=== PATIENT | female | born 1955 | race Caucasian/White ===

== ENCOUNTER 2016-07-30 14:25 | Emergency (ER) | payer OTHER ==
[2016-07-30 14:53] LABS: MANUAL DIFF NEEDED? NO
[2016-07-30 14:55] LABS: BASO% 0.4 % (0.0-0.8); EOS# 0.11 X1000 (0.0-0.7); HEMATOCRIT 39.7 % (37.0-47.0); HEMOGLOBIN 13.4 g/dL (12.0-16.0); IMM GRAN# 0.03 X1000 (0.0-0.04); IMM GRAN% 0.3 % (0.0-0.5); LYMPH# 2.81 X1000 (1.2-3.4); LYMPH% 25.8 % (20.5-51.1); MCH 30.9 PG (27-31); MCHC 33.8 g/dL (33-37); MCV 91.7 FL (81-99); MONO# 0.86 X1000 (0.11-0.59); MONO% 7.9 % (1.7-9.3); MPV 9.8 FL (7.4-10.4); NEUT% 64.6 % (42.2-75.2); PLT 292 X1000 (130-400); RBC 4.33 XMIL (4.2-5.4)
[2016-07-30 15:11] LABS: AGAP 11; ALBUMIN 4.1 g/dL (3.5-5.0); ALKALINE PHOSPHATASE 104 U/L (32-104); BUN 12 mg/dL (8-22); CALCIUM 9.1 mg/dL (8.8-10.2); CHLORIDE 98 mmol/L (98-107); COSMO 271; GOT 22 U/L (10-30); GPT 21 U/L (10-36); POTASSIUM 4.3 mmol/L (3.5-5.1); SODIUM 136 mmol/L (136-145); TCO2 27 mmol/L (25-35); TOTAL BILIRUBIN 0.18 mg/dL (0.20-1.00); TOTAL PROTEIN 7.4 g/dL (6.3-8.3)
[2016-07-30 15:25] LABS: URINE CULTURE NEEDED? NO; URINE MICRO REVIEW NEEDED? NO; URINE SOURCE CLEAN CATCH
[2016-07-30 15:30] LABS: BILIRUBIN URINE NEGATIVE (NEGATIVE); BLOOD URINE NEGATIVE (NEGATIVE); COLOR STRAW; GLUCOSE URINE NEGATIVE (NEGATIVE); LEUKOCYTES URINE NEGATIVE (NEGATIVE); NITRITE URINE NEGATIVE (NEGATIVE); PH URINE 6.5; PROTEIN URINE NEGATIVE (NEGATIVE); SP GRAVITY URINE 1.001; TURBIDITY URINE CLEAR (CLEAR); UROBILINOGEN URINE NORMAL (NORMAL)
[2016-07-30 15:32] LABS: ACETAMINOPHEN < 1.2 ug/mL (10-30)
[2016-07-30 15:32] LABS: UR EPITHELIAL CELLS <10 /HPF (<10); URINE BACTERIA NEGATIVE /HPF; URINE RBC <10 /HPF (<10); URINE WBC <10 /HPF (<10)
[2016-07-30 15:38] LABS: FREE T4 0.43 ng/dL (0.93-1.70)
[2016-07-30 15:38] LABS: UR AMPHETAMINES QUAL NONE DETECTED (NONE DETECT); UR BARBITUATES QUAL NONE DETECTED (NONE DETECT); UR BENZODIAZEPIN QUAL NONE DETECTED (NONE DETECT); UR CANNABINOIDS QUAL NONE DETECTED (NONE DETECT); UR COCAINE QUAL NONE DETECTED (NONE DETECT); UR METHADONE QUAL NONE DETECTED (NONE DETECT); UR OPIATES QUAL NONE DETECTED (NONE DETECT); UR OXYCODONE QUAL NONE DETECTED (NONE DETECT); UR PCP QUAL NONE DETECTED (NONE DETECT)
--- NOTE | 2016-07-30 16:03 | PROVIDER DOCUMENTATION ---
HPI-Psychological Disorder <Chucho Rebolledo - Last Filed: 07/30/16 17:24> - General Source: patient - History of Present Illness-Psych Onset/Duration: reports: this morning Timing: reports: still present Severity: reports: moderate Psychiatric Complaints: reports: suicidal ideation Previous psych related hospitalizations?: No Patient arrived by:: private car Similar Symptoms Previously?: No Recently seen or treated by another doctor?: No <Edda Torres - Last Filed: 07/30/16 17:44> <Maryana Maldonado - Last Filed: 07/30/16 21:32> - General Chief Complaint: Psych Stated Complaint: NEED EVAL Time Seen by Provider: 07/30/16 14:50 Allergies/Adverse Reactions: Patient Allergies Allergy/AdvReac Type Severity Reaction Status Date / Time No Known Allergies Allergy Verified 05/21/16 12:30 Home Medications: Home Medication List Medication Instructions Recorded Confirmed Last Taken Type Amitriptyline HCl 100 mg PO HS 07/30/16 07/30/16 07/29/16 20:00 History 100 MG Buspirone [Buspar] 10 mg PO BID 07/30/16 07/30/16 07/29/16 20:00 History 10 MG Citalopram [Celexa] 20 mg PO DAILY 07/30/16 07/30/16 07/30/16 07:00 History 20 MG Fluticasone 50 Mcg Nasal Page 1 spray INH BID 07/30/16 07/30/16 07/29/16 20:00 History [Flonase] 1 SPRAY Olanzapine [Olanzapine Odt] 5 mg PO HS 07/30/16 07/30/16 07/29/16 20:00 History 5 MG Quetiapine Fumarate 200 mg PO HS 07/30/16 07/30/16 07/29/16 20:00 History 200 MG SIMVAstatin [Zocor] 40 mg PO QHS 07/30/16 07/30/16 07/29/16 20:00 History 40 MG - History of Present Illness-Psych Nature of Presenting Problem: Reports that she has been in correction since 2013 till 2016 and is having to take drug test reports last friday she used crack and last friday or friday was drinking alcohol denies any other illicit drug useage. Reports her drug test is coming up and she wants a referral to [facility] because she reports that if she fails a drug test she will go back to correction and she will kill herself. Denies n,v,f,d, dsysuria. (Edda Torres) Review of Systems - Adult - REVIEW OF SYSTEMS - ADULT Constitutional: denies: chills, fever, fatique Eyes: reports: no symptoms reported Ears, Nose, Mouth & Throat: denies: ear pain, sinus problem, throat pain Cardiovascular: denies: chest pain, irregular heart rate, orthopnea, syncope Respiratory: denies: cough, shortness of breath, wheezing Gastrointestinal: denies: abdominal pain, diarrhea, nausea, vomiting Genitourinary: reports: no symptoms reported Musculoskeletal: reports: no symptoms reported Integumentary: reports: no symptoms reported Neurological: reports: no symptoms reported Psychiatric: reports: see HPI, alcohol/drug dependence, suicidal thoughts. denies: insomnia, panic attacks Endocrine: reports: no symptoms reported Hematologic/Lymphatic: reports: no symptoms reported Allergic/Immunologic: reports: no symptoms reported All Other Systems: Reviewed and Negative <Edda Torres - Last Filed: 07/30/16 17:44> Past History - Adult - PAST MEDICAL HISTORY-ADULT Review of Records: reports: Nursing Assessment Review, Medications Reviewed Major Childhood Illnesses: reports: denies history Cardiovascular: reports: HTN Respiratory: reports: COPD - PRIOR SURGERIES/PROCEDURES Surgical/Procedure History: reports: orthopedic (extremity) (ankle) - IMMUNIZATION STATUS Childhood Immunizations: See Nurse Assessment Flu Vaccine: See Nurse Assessment - SOCIAL HISTORY Smoking: cigarettes, less than 1 pack/day Provider spent 3-5 mins advising pt. on dangers of tobacco.: Discussed manners to quit use, and f/u contacts for add'l counseling. Substance Use: alcohol, cocaine <Edda Torres - Last Filed: 07/30/16 17:44> Physical Exam-Psych Focus - Physical Exam-Psych Initial Vital Signs Reviewed: Yes Appearance: appropriate appearance, appropriate insight, neat, no apparent distress Neurological: alert, normal mood/affect, calm, [employer] II-XII nml as tested, oriented x 3 Behavior/Eye Contact/Speech: cooperative, good eye contact, normal speech Thoughts/Hallucinations: normal thought pattern, no apparent hallucination HENMT: moist mucous membranes, normal ENT inspection, TMs normal, pharynx normal Neck: non-tender, full range of motion, supple, normal inspection Respiratory: chest non-tender, lungs clear, normal breath sounds, no pleuratic chest pain, no respiratory distress, no accessory muscle use Cardiovascular: regular rate, rhythm Abdominal Exam: normal bowel sounds, non tender, soft, no organomegaly, no pulsatile mass Back Exam: normal inspection, no CVA tenderness, no vertebral tenderness Extremity: normal range of motion, non-tender Integumentary: normal color, normal turgor, warm/dry <Edda Torres - Last Filed: 07/30/16 17:44> Progress <Chucho Reoblledo - Last Filed: 07/30/16 17:24> <Edda Torres - Last Filed: 07/30/16 17:44> - EKG 1 Time of EKG reading by physician:: 19:55 EKG Read and Signed by:: London Haywood EKG Interpretation (*Must complete 3 of following elements*): Normal Rate: 60 Rhythm: NSR Comments: Normal ECG - CT/MRI 1 CT Study: Head Impression: Normal CT Results: NAP <Maryana Maldonado - Last Filed: 07/30/16 21:32> - PLAN OF CARE/RESULTS Progress/Plan/Lab Results: Orders Category Date Time Status ACETAMINOPHEN [TDM] Stat Lab 07/30/16 14:44 Completed ALCOHOL BLOOD Stat Lab 07/30/16 14:44 Completed CBC WITH ELECTRONIC DIFF [HEME] Stat Lab 07/30/16 14:44 Completed COMPREHENSIVE METABOLIC PANEL [CHEM] Stat Lab 07/30/16 14:44 Completed FREE T4 Stat Lab 07/30/16 14:44 Completed SALICYLATES [TDM] Stat Lab 07/30/16 14:44 Completed TSH Stat Lab 07/30/16 14:44 Completed URINALYSIS W/POSS RFLX CULT [URINALYSIS] Stat Lab 07/30/16 15:19 Completed URINE DRUG SCREEN Stat Lab 07/30/16 15:19 Completed VITAMIN B12 Stat Lab 07/30/16 14:44 Completed Vital Signs - 24 hr 07/30/16 14:29 Temperature 97.9 F Pulse Rate 68 Respiratory 18 Rate Blood Pressure 186/94 O2 Sat by Pulse 99 Oximetry Laboratory Tests 07/30/16 07/30/16 07/30/16 14:44 14:44 14:44 WBC 10.90 H RBC 4.33 Hgb 13.4 Hct 39.7 MCV 91.7 MCH 30.9 MCHC 33.8 RDW Std Deviation 14.4 Plt Count 292 MPV 9.8 Immature Gran % (Auto) 0.3 Neut % (Auto) 64.6 Lymph % (Auto) 25.8 [place] % (Auto) 7.9 Eos % (Auto) 1.0 Baso % (Auto) 0.4 Immature Gran # (Auto) 0.03 Neut # (Auto) 7.05 H Lymph # (Auto) 2.81 [place] # (Auto) 0.86 H Eos # (Auto) 0.11 Baso # (Auto) 0.04 Sodium 136 Potassium 4.3 Chloride 98 Carbon Dioxide 27 Anion Gap 11 BUN 12 Creatinine 0.8 Estimated GFR/1.73 m2 > 60 BUN/Creatinine Ratio 15 Glucose 89 Calculated Osmolality 271 Calcium 9.1 Total Bilirubin 0.18 L AST 22 ALT 21 Alkaline Phosphatase 104 Total Protein 7.4 Albumin 4.1 Globulin 3.3 Albumin/Globulin Ratio 1.2 Vitamin B12 TSH Free T4 Urine Source Urine Color Urine Turbidity Urine pH Ur Specific [place] Urine Protein Ur Glucose (Stick) Ur Ketones (Stick) Urine Blood Urine Nitrite Urine Bilirubin Urobilinogen Dipstick Urine Leukocytes Urine WBC (Auto) Urine RBC (Auto) U Epithel Cells (Auto) Urine Bacteria (Auto) Salicylates Urine Opiates Screen Ur Oxycodone Screen Ur Methadone, Qual Acetaminophen Ur Barbiturates Screen Ur Phencyclidine Scrn Ur Amphetamines Screen U Benzodiazepines Scrn Urine Cocaine Screen U Cannabinoids Screen Plasma/Serum Ethyl Alc 07/30/16 07/30/16 07/30/16 14:44 14:44 15:19 WBC RBC Hgb Hct MCV MCH MCHC RDW Std Deviation Plt Count MPV Immature Gran % (Auto) Neut % (Auto) Lymph % (Auto) [place] % (Auto) Eos % (Auto) Baso % (Auto) Immature Gran # (Auto) Neut # (Auto) Lymph # (Auto) [place] # (Auto) Eos # (Auto) Baso # (Auto) Sodium Potassium Chloride Carbon Dioxide Anion Gap BUN Creatinine Estimated GFR/1.73 m2 BUN/Creatinine Ratio Glucose Calculated Osmolality Calcium Total Bilirubin AST ALT Alkaline Phosphatase Total Protein Albumin Globulin Albumin/Globulin Ratio Vitamin B12 744 TSH 32.42 H Free T4 0.43 L Urine Source CLEAN CATCH Urine Color STRAW Urine Turbidity CLEAR Urine pH 6.5 Ur Specific [place] 1.001 Urine Protein NEGATIVE Ur Glucose (Stick) NEGATIVE Ur Ketones (Stick) NEGATIVE Urine Blood NEGATIVE Urine Nitrite NEGATIVE Urine Bilirubin NEGATIVE Urobilinogen Dipstick NORMAL Urine Leukocytes NEGATIVE Urine WBC (Auto) <10 Urine RBC (Auto) <10 U Epithel Cells (Auto) <10 Urine Bacteria (Auto) NEGATIVE Salicylates < 3.00 L Urine Opiates Screen Ur Oxycodone Screen Ur Methadone, Qual Acetaminophen < 1.2 L Ur Barbiturates Screen Ur Phencyclidine Scrn Ur Amphetamines Screen U Benzodiazepines Scrn Urine Cocaine Screen U Cannabinoids Screen Plasma/Serum Ethyl Alc 07/30/16 15:19 WBC RBC Hgb Hct MCV MCH MCHC RDW Std Deviation Plt Count MPV Immature Gran % (Auto) Neut % (Auto) Lymph % (Auto) [place] % (Auto) Eos % (Auto) Baso % (Auto) Immature Gran # (Auto) Neut # (Auto) Lymph # (Auto) [place] # (Auto) Eos # (Auto) Baso # (Auto) Sodium Potassium Chloride Carbon Dioxide Anion Gap BUN Creatinine Estimated GFR/1.73 m2 BUN/Creatinine Ratio Glucose Calculated Osmolality Calcium Total Bilirubin AST ALT Alkaline Phosphatase Total Protein Albumin Globulin Albumin/Globulin Ratio Vitamin B12 TSH Free T4 Urine Source Urine Color Urine Turbidity Urine pH Ur Specific [place] Urine Protein Ur Glucose (Stick) Ur Ketones (Stick) Urine Blood Urine Nitrite Urine Bilirubin Urobilinogen Dipstick Urine Leukocytes Urine WBC (Auto) Urine RBC (Auto) U Epithel Cells (Auto) Urine Bacteria (Auto) Salicylates Urine Opiates Screen NONE DETECTED Ur Oxycodone Screen NONE DETECTED Ur Methadone, Qual NONE DETECTED Acetaminophen Ur Barbiturates Screen NONE DETECTED Ur Phencyclidine Scrn NONE DETECTED Ur Amphetamines Screen NONE DETECTED U Benzodiazepines Scrn NONE DETECTED Urine Cocaine Screen NONE DETECTED U Cannabinoids Screen NONE DETECTED Plasma/Serum Ethyl Alc [id number] [facility] contacted for evaluation (Edda Torres) Vital Signs - 24 hr 07/30/16 07/30/16 14:29 18:08 Temperature 97.9 F Pulse Rate 68 66 Respiratory 18 20 Rate Blood Pressure 186/94 150/76 O2 Sat by Pulse 99 97 Oximetry Orders Category Date Time Status Regular Diet Diet 07/30/16 16:26 Active CHEST-2 VIEWS [RAD] Stat Exams 07/30/16 21:12 Taken HEAD W/O CONTRAST [CT] Stat Exams 07/30/16 19:50 Taken ACETAMINOPHEN [TDM] Stat Lab 07/30/16 14:44 Completed ALCOHOL BLOOD Stat Lab 07/30/16 14:44 Completed CBC WITH ELECTRONIC DIFF [HEME] Stat Lab 07/30/16 14:44 Completed COMPREHENSIVE METABOLIC PANEL [CHEM] Stat Lab 07/30/16 14:44 Completed FREE T4 Stat Lab 07/30/16 14:44 Completed MAGNESIUM [CHEM] Stat Lab 07/30/16 14:44 Completed RPR [SERO] Stat Lab 07/30/16 14:44 Completed SALICYLATES [TDM] Stat Lab 07/30/16 14:44 Completed TSH Stat Lab 07/30/16 14:44 Completed URINALYSIS W/POSS RFLX CULT [URINALYSIS] Stat Lab 07/30/16 15:19 Completed URINE DRUG SCREEN Stat Lab 07/30/16 15:19 Completed VITAMIN B12 Stat Lab 07/30/16 14:44 Completed Levothyroxine [Synthroid] Med 07/30/16 17:15 Discontinued 100 microgm PO NOW ONE EKG [EKG] Stat Ther 07/30/16 19:50 Ordered Laboratory Tests 07/30/16 07/30/16 07/30/16 14:44 14:44 14:44 WBC 10.90 H RBC 4.33 Hgb 13.4 Hct 39.7 MCV 91.7 MCH 30.9 MCHC 33.8 RDW Std Deviation 14.4 Plt Count 292 MPV 9.8 Immature Gran % (Auto) 0.3 Neut % (Auto) 64.6 Lymph % (Auto) 25.8 [place] % (Auto) 7.9 Eos % (Auto) 1.0 Baso % (Auto) 0.4 Immature Gran # (Auto) 0.03 Neut # (Auto) 7.05 H Lymph # (Auto) 2.81 [place] # (Auto) 0.86 H Eos # (Auto) 0.11 Baso # (Auto) 0.04 Sodium 136 Potassium 4.3 Chloride 98 Carbon Dioxide 27 Anion Gap 11 BUN 12 Creatinine 0.8 Estimated GFR/1.73 m2 > 60 BUN/Creatinine Ratio 15 Glucose 89 Calculated Osmolality 271 Calcium 9.1 Magnesium Total Bilirubin 0.18 L AST 22 ALT 21 Alkaline Phosphatase 104 Total Protein 7.4 Albumin 4.1 Globulin 3.3 Albumin/Globulin Ratio 1.2 Vitamin B12 TSH Free T4 Urine Source Urine Color Urine Turbidity Urine pH Ur Specific [place] Urine Protein Ur Glucose (Stick) Ur Ketones (Stick) Urine Blood Urine Nitrite Urine Bilirubin Urobilinogen Dipstick Urine Leukocytes Urine WBC (Auto) Urine RBC (Auto) U Epithel Cells (Auto) Urine Bacteria (Auto) Salicylates Urine Opiates Screen Ur Oxycodone Screen Ur Methadone, Qual Acetaminophen Ur Barbiturates Screen Ur Phencyclidine Scrn Ur Amphetamines Screen U Benzodiazepines Scrn Urine Cocaine Screen U Cannabinoids Screen Plasma/Serum Ethyl Alc RPR 07/30/16 07/30/16 07/30/16 14:44 14:44 14:44 WBC RBC Hgb Hct MCV MCH MCHC RDW Std Deviation Plt Count MPV Immature Gran % (Auto) Neut % (Auto) Lymph % (Auto) [place] % (Auto) Eos % (Auto) Baso % (Auto) Immature Gran # (Auto) Neut # (Auto) Lymph # (Auto) [place] # (Auto) Eos # (Auto) Baso # (Auto) Sodium Potassium Chloride Carbon Dioxide Anion Gap BUN Creatinine Estimated GFR/1.73 m2 BUN/Creatinine Ratio Glucose Calculated Osmolality Calcium Magnesium 2.2 Total Bilirubin AST ALT Alkaline Phosphatase Total Protein Albumin Globulin Albumin/Globulin Ratio Vitamin B12 744 TSH 32.42 H Free T4 0.43 L Urine Source Urine Color Urine Turbidity Urine pH Ur Specific [place] Urine Protein Ur Glucose (Stick) Ur Ketones (Stick) Urine Blood Urine Nitrite Urine Bilirubin Urobilinogen Dipstick Urine Leukocytes Urine WBC (Auto) Urine RBC (Auto) U Epithel Cells (Auto) Urine Bacteria (Auto) Salicylates < 3.00 L Urine Opiates Screen Ur Oxycodone Screen Ur Methadone, Qual Acetaminophen < 1.2 L Ur Barbiturates Screen Ur Phencyclidine Scrn Ur Amphetamines Screen U Benzodiazepines Scrn Urine Cocaine Screen U Cannabinoids Screen Plasma/Serum Ethyl Alc RPR 07/30/16 07/30/16 07/30/16 14:44 15:19 15:19 WBC RBC Hgb Hct MCV MCH MCHC RDW Std Deviation Plt Count MPV Immature Gran % (Auto) Neut % (Auto) Lymph % (Auto) [place] % (Auto) Eos % (Auto) Baso % (Auto) Immature Gran # (Auto) Neut # (Auto) Lymph # (Auto) [place] # (Auto) Eos # (Auto) Baso # (Auto) Sodium Potassium Chloride Carbon Dioxide Anion Gap BUN Creatinine Estimated GFR/1.73 m2 BUN/Creatinine Ratio Glucose Calculated Osmolality Calcium Magnesium Total Bilirubin AST ALT Alkaline Phosphatase Total Protein Albumin Globulin Albumin/Globulin Ratio Vitamin B12 TSH Free T4 Urine Source CLEAN CATCH Urine Color STRAW Urine Turbidity CLEAR Urine pH 6.5 Ur Specific [place] 1.001 Urine Protein NEGATIVE Ur Glucose (Stick) NEGATIVE Ur Ketones (Stick) NEGATIVE Urine Blood NEGATIVE Urine Nitrite NEGATIVE Urine Bilirubin NEGATIVE Urobilinogen Dipstick NORMAL Urine Leukocytes NEGATIVE Urine WBC (Auto) <10 Urine RBC (Auto) <10 U Epithel Cells (Auto) <10 Urine Bacteria (Auto) NEGATIVE Salicylates Urine Opiates Screen NONE DETECTED Ur Oxycodone Screen NONE DETECTED Ur Methadone, Qual NONE DETECTED Acetaminophen Ur Barbiturates Screen NONE DETECTED Ur Phencyclidine Scrn NONE DETECTED Ur Amphetamines Screen NONE DETECTED U Benzodiazepines Scrn NONE DETECTED Urine Cocaine Screen NONE DETECTED U Cannabinoids Screen NONE DETECTED Plasma/Serum Ethyl Alc RPR NON-REACTIVE 21:27 Pt was accepted and is being transferred to [facility] (Maryana Maldonado) Departure <Chucho Rebolledo - Last Filed: 07/30/16 17:24> - Departure Time of Disposition Order: 17:06 Certified Medical Emergency: Emergent <Edda Torres - Last Filed: 07/30/16 17:44> - Departure Time of Disposition Order: 21:28 Certified Medical Emergency: Emergent <Maryana Maldonado - Last Filed: 07/30/16 21:32> - Departure DIAGNOSIS: Suicidal thoughts Hypothyroid Qualifiers: Hypothyroidism type: acquired Qualified Code(s): E03.9 - Hypothyroidism, unspecified Disposition: [facility] Condition: Stable Additional Instructions: ED Follow Up Instructions: You have been treated by a care provider in the Emergency Department. These instructions are being provided to you so you can have an understanding of how to care for yourself upon discharge. Upon discharge from the Emergency Department, you are responsible for making arrangements for follow-up care by a physician of your choice. Take all prescribed medications as directed. Return to the Emergency Department immediately for any new or worsening symptoms. You may call the Physician Referral phone number at [phone] to obtain a list of Physicians who are taking new patients. Referrals: ALE BARRON CRNP [Primary Care Provider] - Attestation - Scribe Verification/Attestation Scribe:: Edda Torres Acting as Scribe for:: Chucho Rebolledo Scribquintin documention review:: This chart was documented by a scribe and accurately reflects the service the provider performed and the decisions made by the provider. - Scribe Verification/Attestation #2 Shift Change Time: 18:00 Scribe Name: Maryana Maldonado <Edda Torres - Last Filed: 07/30/16 17:44> - Scribe Verification/Attestation Scribe:: Maryana Maldonado Acting as Scribe for:: London Haywood Scribe documention review:: This chart was documented by a scribe and accurately reflects the service the provider performed and the decisions made by the provider. <Maryana Maldonado - Last Filed: 07/30/16 21:32> Physician Attestation - Physician Attestation I, the provider, attest to the following statement:: Chucho Rebolledo Physician documentation Attestation:: This documentation recorded by the scribe accurately reflects the service I personally performed and the decisions made by me. <Edda Torres - Last Filed: 07/30/16 17:44>
[2016-07-30] MEDS ORDERED: SYNTHROID PO ONE (17:15)
[2016-07-30 21:50] VITALS: BP 156/89
--- NOTE | 2016-07-31 05:36 | EKG Report ---
Test Performed on : 07/30/2016 7:55:12 PM Test Reason : WEST Blood Pressure : / mmHG Vent. Rate : 060 BPM Atrial Rate : 060 BPM P-R Int : 142 ms QRS Dur : 086 ms QT Int : 432 ms P-R-T Axes : 066 070 082 degrees QTc Int : 432 ms Normal sinus rhythm. Normal ECG No previous ECGs available Unconfirmed Result
--- NOTE | 2016-07-31 07:20 | Diag Imaging Result Document ---
PROCEDURE NAME: HEAD W/O CONTRAST - 07/30/[address], 07/30/2016: A CT dose reduction protocol was used. COMPARISON: 05/21/2016. FINDINGS: The ventricles and sulci are normal in size and contour. There is no mass, hemorrhage, or evidence of acute ischemia. The bony calvaria is intact. The visualized paranasal sinuses and mastoid air cells are clear. IMPRESSION: Negative head CT. MTDD
--- NOTE | 2016-07-31 09:19 | Diag Imaging Result Document ---
PROCEDURE NAME: CHEST-2 VIEWS - 07/30/2016 2 VIEWS OF THE CHEST: FINDINGS: There is COPD. There is no evidence of acute cardiac or pulmonary disease. There are no previous studies. IMPRESSION: No acute disease.
== END 2016-07-30 21:50 ==
LOC: ED 14:25
DX: R45.851 Suicidal ideations (principal); E03.9 Hypothyroidism, unspecified; I10 Essential (primary) hypertension; J44.9 Chronic obstructive pulmonary disease, unspecified; F17.210 Nicotine dependence, cigarettes, uncomplicated; Z79.899 Other long term (current) drug therapy; Z71.6 Tobacco abuse counseling
CPT/HCPCS: 70450; 71020; 80053; 81001; 82607; 83735; 84439; 84443; 85025; 86592; 93005; G0480; 80320; 80324; 80329; 80345; 80346; 80349; 80353; 80358; 80361; 80365; 83992